=== PATIENT | female | born 1980 | race Caucasian/White ===

== ENCOUNTER → 2018-12-10 08:00 | Outpatient (CLI) | payer BC, SELFPAY ==
[2018-12-10 08:46] LABS: Basophils # 0.1 K/mm3 (0-0.2); Basophils % 0.8 % (0.1-2.0); Eosinophils # 0.7 K/mm3 (0.0-0.4); Eosinophils % 7.6 % (0.1-12.0); Hematocrit 42.1 % (37.0-47.0); Hemoglobin 13.4 g/dL (12.2-16.2); Lymphocytes # 1.8 K/mm3 (0.7-4.5); Lymphocytes % 20.5 % (10-50); Mean Corpuscular HGB Conc 31.9 g/dL (31.8-35.4); Mean Corpuscular Hemoglobin 28.4 pg (27.0-31.2); Mean Corpuscular Volume 89.3 fl (81-99); Mean Platelet Volume 8.2 fl (7.4-10.4); Monocytes # 0.5 K/mm3 (0.1-1.0); Monocytes % 5.6 % (1.7-9.3); Neutrophils # 5.7 K/mm3 (1.8-7.8); Neutrophils % 65.4 % (37.0-80.0); Platelet Count 440 K/mm3 (142-424); Red Blood Count 4.72 M/mm3 (4.20-5.40); Red Cell Distribution Width 14.7 % (11.5-17.5); White Blood Count 8.7 K/mm3 (4.8-10.8)
[2018-12-10 09:31] LABS: Hemoglobin A1C 6.2 % (0.0-7.0)
[2018-12-10 09:54] LABS: Alanine Aminotransferase 59 U/L (12-78); Albumin Level 3.6 gm/dL (3.4-5.0); Alkaline Phosphatase 90 U/L (46-116); Anion Gap 14.4 mEq/L (5-15); Aspartate Amino Transferase 37 U/L (15-37); Bilirubin,Total 0.2 mg/dL (0.2-1.0); Blood Urea Nitrogen 14 mg/dL (7-18); Calcium 8.8 mg/dL (8.5-10.1); Carbon Dioxide 28 mmol/L (21.0-32.0); Chloride 104 mmol/L (98-107); Chol/HDL Ratio 5.4 (1-3.5); Cholesterol 178 mg/dL (140-200); Estimated Glomerular Filt Rate 80 ml/min (>60); GFR (African American) 97 ML/MIN (>60); Globulin 3.6 gm/dl (1.3-3.2); Glucose 102 mg/dL (74-106); HDL Cholesterol 33 mg/dL (29-89); LDL Cholesterol 108 mg/dL (0-130); Potassium 4.4 mmoL/L (3.5-5.1); Sodium 142 mmol/L (136-145); Total Protein,Serum 7.2 gm/dL (6.4-8.2); Triglycerides 184 mg/dL (30-200); VLDL Cholesterol 37 mg/dL (0-40)
[2018-12-11 08:18] LABS: Testosterone,Total 23 ng/dL (8-48)
[2018-12-11 17:49] LABS: FSH 8.1 mIU/mL (.); LH 10.9 mIU/mL (.); Vitamin B12 1254 pg/mL (232-1245); Vitamin D 25 Hydroxy 25.1 ng/mL (30.0-100.0)
== END ==
PROVIDERS: Visit Provider Internal Medicine Adolescent Medicine
DX: Z00.00 Encounter for general adult medical examination without abnormal findings (principal); L83 Acanthosis nigricans; E28.2 Polycystic ovarian syndrome; E66.9 Obesity, unspecified
CPT/HCPCS: 36415; 80053; 80061; 82180; 82607; 82652; 83001; 83002; 83036; 84403; 85025

== ENCOUNTER 2021-11-02 09:01 | Emergency (ER) | payer BC, SELFPAY ==
[2021-11-02 09:20] VITALS: BP 122/78; PULSE 94; RESP 18; TEMP 37; O2SAT 95; BMI 37.7
[2021-11-02 09:38] LABS: Strep Scrn Group A (Rapid) Negative (Negative)
--- NOTE | 2021-11-02 09:51 | HMH.EDUTC ---
[facility] [place] Clinical Impression: URI (upper respiratory infection) Qualifiers: URI type: unspecified URI Qualified Code(s): J06.9 - Acute upper respiratory infection, unspecified Disposition: Home, Self-Care Condition on Discharge: Good Instructions: Sore Throat, Conjunctivitis, DI for Subconjunctival Hemorrhage Additional Instructions: *Monitor Temp, Over the counter Motrin or Tylenol as directed/as needed Tylenol every 4 hours and Motrin every 6 hours (as long as your family doctor has told you that you can take it) for fever or pain. and straight to ER if unable to lower temp less than 101.0 after medication given *Warm salt water gargles may help to soothe the throat *Throat Lozenges *Warm fluids like tea with honey may help to soothe the throat *Sleep elevated *Humidifier/Vaporizer Take medication as prescribed Your throat swab was sent for culture. Those results are typically sent to your primary care. Be sure to follow up in 2-3 days with your family doctor/primary care physician if no improvement so they can review those result and treat if necessary. If you don?t have a primary care doctor, I recommend you get one but in the mean time, you will have to return to a walk in clinic Follow up IMMEDIATELY for new or worsening symptoms or no Noticeable improvement over the next 48-72 hours. 911 for difficulty breathing or swallowing Prescriptions: Polymyxin B Sulf/Trimethoprim [Polytrim Eye Drops] 2 drp OP Q6H 7 Days #10 ml Transmission Status: Received by [id number] Azithromycin [Z-Sudeep 250mg Tab] 250 mg PO DIRECTED #6 tab Transmission Status: Received by [id number] Referrals: Provider,Referral, [Primary Care Provider] - As needed Time of Disposition: 10:08 Medical Decision Making - Bowen Inquiry Pt receiving controlled substance: No Bowen was queried for this patient: No Vital Signs: 11/02/21 09:20 11/02/21 10:13 Temperature 98.6 F 98.6 F Temperature Source Oral Pulse Rate 94 H Pulse Rate [Right Brachial] 94 H Respiratory Rate 18 18 Blood Pressure 122/78 Blood Pressure [Right Arm] 122/78 Blood Pressure Mean [Right Arm] 92 Blood Pressure Source [Right Arm] Automatic Cuff Blood Pressure Position [Right Arm] Sitting 02 Sat by Pulse Oximetry 95 Oxygen Delivery Method Room Air - Lab Data Lab results reviewed: Yes: I reviewed the patient's lab results. Lab Results 11/02/21 09:22: Group A Strep Rapid Negative Orders (Tests/Meds): ORDERS Category Date Time Status Strep Screen Confirmation Stat Micro 11/02/21 09:22 [place] [facility] [place] - General Stated complaint: sore throat, eye pinkness Time Seen by Provider: 11/02/21 09:51 Mode of Arrival: Ambulatory Source of Information: Patient Limitations: No Limitations Description of Symptoms (Recalled from Triage Doc. by RN): PATIENT C/O SORE THROAT, COUGH WITH MUCOUS, AND REDNESS/DRAINAGE TO BILATERAL EYES HEENT Symptoms (Recalled from RN notes): Yes Resp Symptoms (Recalled from RN notes): Yes Skin Symptoms (Recalled from RN notes): No MS Symptoms (Recalled from RN notes): No Functional Status (Recalled from RN notes): WNL - History of Present Illness Provider Complaint: Patient states that she has been having sore throat, patchy like areas on the back of her throat, cough, sinus congestion and redness and drainage from both eyes State that she also had acoughing episode a couple days ago and has noticed that she has red spots in the top of her eyes Denies headache and denies vision changes - Related Data Previous Rx's Medication Instructions Recorded Azithromycin [Z-Sudeep 250mg Tab] 250 mg PO DIRECTED #6 tab 11/02/21 Polymyxin B Sulf/Trimethoprim 2 drp OP Q6H 7 Days #10 ml 11/02/21 [Polytrim Eye Drops] Allergies Allergy/AdvReac Type Severity Reaction Status Date / Time naproxen Allergy Mild Verified 07/11/17 10:00 shellfish derived Allergy Verified 11/02/21 09:48 -
[2021-11-02 10:13] VITALS: BP 122/78; PULSE 94; RESP 18; TEMP 37; O2SAT 95
== END 2021-11-02 10:18 | disposition home or self-care (01) ==
PROVIDERS: Emergency Provider Nurse Practitioner
DX: J06.9 Acute upper respiratory infection, unspecified (principal); H11.33 Conjunctival hemorrhage, bilateral
CPT/HCPCS: 87430; 99212; G0463